=== PATIENT | female | born 1955 | race Caucasian/White ===

== ENCOUNTER 2016-05-30 19:17 | Emergency (ER) | payer MEDICARE, OTHER ==
[~2016-05-30 19:17] MED LIST: traMADol 50 MG Tab PO ONE
[2016-05-30 19:26] VITALS: BP 151/73
--- NOTE | 2016-05-30 19:43 | EDM.PDOC ---
ED HPI Trauma - General Chief Complaint: Lower Extremity Injury/Pain Stated Complaint: right foot pain Time Seen by Provider: 05/30/16 19:33 Source: Reports: Patient History Limitations: Reports: No limitations - History of Present Illness INITIAL COMMENTS - FREE TEXT/NARRATIVE: Was walking dog and it tripped her and she is having pain across the arch of her foot. She feels that it rotated internally. No numbness or tingling noted. No swelling. States that initially it didn't hurt but has become much worse. Did not take anything for the pain. Symptom Onset Date: 05/30/16 Symptom Onset Time: 17:00 Occurred Where: home Method of Injury: fall Pain/Injury Location: Reports: lower extremity, right Consciousness: Reports: no loss of consciousness Associated Symptoms: Reports: no other symptoms Allergies/ADRs: Allergies atorvastatin calcium [From Lipitor] Allergy (Verified 05/30/16 19:26) Fatigue Home Medications: Ambulatory Orders Aspirin [Halfprin] 81 mg PO DAILY 05/11/14 [Confirmed 05/30/16] Lisinopril [Lisinopril] 2.5 mg PO BID 05/11/14 [Confirmed 05/30/16] Metoprolol Tartrate [Lopressor] 25 mg PO DAILY 05/11/14 [Confirmed 05/30/16] Rosuvastatin Calcium [Crestor] 20 mg PO DAILY 05/11/14 [Confirmed 05/30/16] Isosorbide Mononitrate [Isosorbide Mononitrate ER] 30 mg PO DAILY 05/30/16 [ Confirmed 05/30/16] Past Medical History HEENT History: Reports: Impaired vision Other HEENT History: WEARS GLASSES Cardiovascular History: Reports: High cholesterol, Hypertension 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: Endocrine/Metabolic History: Reports: Diabetes, type I Hematologic History: Reports: Blood transfusion(s) - Past Surgical History Cardiovascular Surgical History: Reports: Coronary artery stent, Other (see below) Other Cardiovascular Surgeries/Procedures: 5 STENTS GI Surgical History: Reports: Cholecystectomy Social & Family History - Family History Family Medical History: Noncontributory - Tobacco Use Smoking Status *Q: Never Smoker Second Hand Smoke Exposure: No - Alcohol Use Days Per Week of Alcohol Use: 0 - Recreational Drug Use Recreational Drug Use: No - Living Situation & Occupation Living situation: Reports: , with spouse Occupation: employed Review of Systems - Review of Systems Review Of Systems: See Below Musculoskeletal: Reports: foot pain (right) Trauma Exam - Physical Exam Exam: See Below Exam Limited By: No limitations General Appearance: Reports: alert, moderate distress Head: Reports: atraumatic, normocephalic Extremities: Reports: tenderness (across the arch of her foot. no swelling noted. No deformity noted. Very tender with palpation.) Neurologic: Reports: oriented x 3 Skin: Reports: Normal color, Warm/dry Course - Vital Signs Last Recorded V/S: Last Vital Signs Temp 98.8 F 05/30/16 19:20 Pulse 76 05/30/16 19:20 Resp 20 05/30/16 19:20 BP 151/73 H 05/30/16 19:20 Pulse Ox 98 05/30/16 19:20 - Orders/Labs/Meds Orders: Active Orders 24 hr Category Date Time Status Foot Comp Min 3V Rt [CR] Stat Exams 05/30/16 19:30 Ordered - Re-Assessments/Exams Free Text/Narrative Re-Assessment/Exam: 05/30/16 19:43 No fracture or dislocation noted on xray Departure - Departure Time of Disposition: 19:44 Disposition: Home, Self-Care 01 Condition: good Clinical Impression: Sprain of foot, right Qualifiers: Encounter type: initial encounter Qualified Code(s): S93.601A - Unspecified sprain of right foot, initial encounter Instructions: Foot Sprain Forms: ED Department Discharge Additional Instructions: Tramadol 50 mg every 4 hours as needed for discomfort Rest and elevate with ice for swelling. Recheck if any further concerns. - Problem List & Annotations (1) Sprain of foot, right SNOMED Code(s): 20109959 Code(s): S93.601A - UNSPECIFIED SPRAIN OF RIGHT FOOT, INITIAL ENCOUNTER Status: Acute Priority: High Current Visit: Yes Qualifiers: Encounter type: initial encounter Qualified Code(s): S93.601A - Unspecified sprain of right foot, initial encounter - Problem List Review Problem List Initiated/Reviewed/Updated: Yes - My Orders Last 24 Hours: My Active Orders 05/30/16 19:30 Foot Comp Min 3V Rt [CR] Stat - Assessment/Plan Last 24 Hours: My Active Orders 05/30/16 19:30 Foot Comp Min 3V Rt [CR] Stat
[2016-05-30] MEDS ORDERED: Take Home: traMADol 50 MG, 4 Tab Pack PO PRN (19:45)
== END 2016-05-30 19:55 | disposition home or self-care (01) ==
LOC: CC.ED 19:17
DX: S93.601A Unspecified sprain of right foot, initial encounter (principal); E78.00 Pure hypercholesterolemia, unspecified; I10 Essential (primary) hypertension; E10.9 Type 1 diabetes mellitus without complications; Z90.49 Acquired absence of other specified parts of digestive tract; Z88.8 Allergy status to other drugs, medicaments and biological substances; W01.0XXA Fall on same level from slipping, tripping and stumbling without subsequent striking against object, initial encounter; Y92.009 Unspecified place in unspecified non-institutional (private) residence as the place of occurrence of the external cause
CPT/HCPCS: 73630; 99283; A9270

== ENCOUNTER 2019-04-28 16:55 | Emergency (ER) | payer MEDICARE, OTHER ==
[2019-04-28 17:04] VITALS: BP 140/58; PULSE 76
--- NOTE | 2019-04-28 17:29 | EDM.PDOC ---
ED HPI GENERAL MEDICAL PROBLEM - General Chief Complaint: Lower Extremity Injury/Pain Stated Complaint: HURT FOOT Time Seen by Provider: 04/28/19 17:18 Source of Information: Reports: Patient History Limitations: Reports: No Limitations - History of Present Illness INITIAL COMMENTS - FREE TEXT/NARRATIVE: Patient presents to ER with complaints of right ankle pain. Tripped while carrying boxes in her garage and her ankle rolled under her. She is now noting increased pain to right lateral ankle and foot. Is having increased pain with weight bearing. NO other injuries elsewhere. Denies hitting her head or losing consciousness. Onset: Today, Sudden Duration: Minutes: Location: Reports: Lower Extremity, Right Quality: Reports: Throbbing Severity: Moderate Improves with: Reports: Rest Worsens with: Reports: Movement Context: Reports: Trauma Associated Symptoms: Reports: No Other Symptoms Right Ankle Pain Score (Numeric/FACES): 9 - Related Data Allergies Allergy/AdvReac Type Severity Reaction Status Date / Time atorvastatin calcium Allergy Leg Cramps Verified 04/28/19 17:09 [From Lipitor] Home Meds: Home Meds Aspirin [Halfprin] 81 mg PO DAILY 05/11/14 [History] Lisinopril 2.5 mg PO BID 05/11/14 [History] Metoprolol Tartrate [Lopressor] 25 mg PO DAILY 05/11/14 [History] Rosuvastatin Calcium [Crestor] 20 mg PO DAILY 05/11/14 [History] Isosorbide Mononitrate [Isosorbide Mononitrate ER] 30 mg PO DAILY 05/30/16 [ History] Omeprazole 20 mg PO DAILY 04/28/19 [History] Past Medical History HEENT History: Reports: Impaired Vision Other HEENT History: WEARS GLASSES Cardiovascular History: Reports: High Cholesterol, Hypertension 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: Endocrine/Metabolic History: Reports: Diabetes, Type I Hematologic History: Reports: Blood Transfusion(s) - Past Surgical History Cardiovascular Surgical History: Reports: Coronary Artery Stent, Other (See Below) GI Surgical History: Reports: Cholecystectomy Social & Family History - Family History Family Medical History: Noncontributory - Tobacco Use Smoking Status *Q: Never Smoker - Caffeine Use Caffeine Use: Reports: Soda - Recreational Drug Use Recreational Drug Use: No - Living Situation & Occupation Living situation: Reports: , with Spouse Occupation: Employed Review of Systems - Review of Systems Review Of Systems: See Below Musculoskeletal: Reports: Joint Pain, Joint Swelling Skin: Reports: No Symptoms Neurological: Reports: No Symptoms ED EXAM, GENERAL - Physical Exam Exam: See Below Exam Limited By: No Limitations General Appearance: Alert, WD/WN, Mild Distress Extremities: Normal Capillary Refill, Joint Swelling (patient has notable right lateral malleolar swelling. Tender. Pain with flexion, extension and inversion. ), Limited Range of Motion. No: Redness Neurological: Alert, Oriented Skin Exam: Warm, Dry Course - Vital Signs Last Recorded V/S: Last Vital Signs Temp 98.1 F 04/28/19 17:02 Pulse 76 04/28/19 17:02 Resp 16 04/28/19 17:02 BP 140/58 L 04/28/19 17:02 Pulse Ox 98 04/28/19 17:02 - Orders/Labs/Meds Orders: Active Orders 24 hr Category Date Time Status Ankle Min 3V Rt [CR] Stat Exams 04/28/19 17:04 Taken Foot Comp Min 3V Rt [CR] Stat Exams 04/28/19 17:04 Taken - Re-Assessments/Exams Free Text/Narrative Re-Assessment/Exam: 04/28/19 Xrays negative. Air splint applied. Departure - Departure Time of Disposition: 17:25 Disposition: Home, Self-Care 01 Condition: Good Clinical Impression: Right ankle sprain - Discharge Information *PRESCRIPTION DRUG MONITORING PROGRAM REVIEWED*: No *COPY OF PRESCRIPTION DRUG MONITORING REPORT IN PATIENT MARQUISE: No Forms: ED Department Discharge Additional Instructions: 1. Rest 2. Ice frequently tonight 3. Elevate on pillows tonight 4. Air splint for support for the next few days 5. Weight bear as tolerated 6. Ibuprofen 400-600 mg every 6 hours as needed for pain and swelling 7. Follow up in 5-7 days if persisting pain. Sepsis Event Note - Evaluation Sepsis Screening Result: No Definite Risk - Focused Exam Vital Signs: Vital Signs Temp Pulse Resp BP Pulse Ox 04/28/19 17:02 98.1 F 76 16 140/58 L 98 Date Exam was Performed: 04/28/19 Time Exam was Performed: 20:20 - My Orders Last 24 Hours: My Active Orders 04/28/19 17:04 Ankle Min 3V Rt [CR] Stat Foot Comp Min 3V Rt [CR] Stat - Assessment/Plan Last 24 Hours: My Active Orders 04/28/19 17:04 Ankle Min 3V Rt [CR] Stat Foot Comp Min 3V Rt [CR] Stat
== END 2019-04-28 17:30 | disposition home or self-care (01) ==
LOC: CC.ED 16:55 → SUPCPDRO 16:55 → CC.ED 17:30
DX: S93.401A Sprain of unspecified ligament of right ankle, initial encounter (principal); E10.9 Type 1 diabetes mellitus without complications; E78.00 Pure hypercholesterolemia, unspecified; I10 Essential (primary) hypertension; Z79.82 Long term (current) use of aspirin; Z88.8 Allergy status to other drugs, medicaments and biological substances; Z79.899 Other long term (current) drug therapy; X50.1XXA Overexertion from prolonged static or awkward postures, initial encounter
CPT/HCPCS: 73610-RT; 73630-RT; 99283; 99283-25

== ENCOUNTER 2021-02-12 15:08 | Emergency (ER) | payer MEDICARE, OTHER ==
[2021-02-12 15:24] VITALS: BP 135/63; PULSE 85
--- NOTE | 2021-02-12 15:43 | EDM.PDOC ---
ED HPI GENERAL MEDICAL PROBLEM - General Chief Complaint: General Stated Complaint: "dry socket in shoulder" Time Seen by Provider: 02/12/21 15:15 Source of Information: Reports: Patient History Limitations: Reports: No Limitations - History of Present Illness INITIAL COMMENTS - FREE TEXT/NARRATIVE: States that she started to have pain in the left shoulder area yesterday and it became worse today. She wasn't able to lift her shoulder as it hurt. She states that it is superficially very tender and put any icy hot patch on it without any improvement. She Denies any lifting, falls or injury to the out stretched arm. Denies that it hurts in the joint but more superficially as even minimal pressure causes her to have pain. She has no bruising noted to the area. Onset: Gradual Duration: Getting Worse Location: Reports: Upper Extremity, Left Quality: Reports: Throbbing Associated Symptoms: Denies: Fever/Chills Treatments PSYCHOLOGY ASSOCIATE: Reports: Acetaminophen, NSAIDS, Other (see below) (icy hot patch) Left Shoulder Pain Score (Numeric/FACES): 9 - Related Data Allergies Allergy/AdvReac Type Severity Reaction Status Date / Time atorvastatin calcium Allergy Leg Cramps Verified 02/12/21 15:21 [From Lipitor] Home Meds: Home Meds Aspirin [Halfprin] 81 mg PO DAILY 05/11/14 [History] Lisinopril 2.5 mg PO BID 05/11/14 [History] Metoprolol Tartrate [Lopressor] 25 mg PO BID 05/11/14 [History] Rosuvastatin Calcium [Crestor] 20 mg PO DAILY 05/11/14 [History] Isosorbide Mononitrate [Isosorbide Mononitrate ER] 60 mg PO DAILY 05/30/16 [History] Omeprazole 20 mg PO DAILY 04/28/19 [History] Past Medical History HEENT History: Reports: Impaired Vision Other HEENT History: WEARS GLASSES Cardiovascular History: Reports: High Cholesterol, Hypertension 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: Endocrine/Metabolic History: Reports: Diabetes, Type I Hematologic History: Reports: Blood Transfusion(s) - Past Surgical History Cardiovascular Surgical History: Reports: Coronary Artery Stent, Other (See Below) GI Surgical History: Reports: Cholecystectomy Social & Family History - Family History Family Medical History: No Pertinent Family History - Tobacco Use Tobacco Use Status *Q: Never Tobacco User Second Hand Smoke Exposure: No - Caffeine Use Caffeine Use: Reports: None - Recreational Drug Use Recreational Drug Use: No - Living Situation & Occupation Living situation: Reports: , with Spouse Occupation: Employed ED ROS GENERAL - Review of Systems Review Of Systems: See Below Constitutional: Denies: Fever, Chills Musculoskeletal: Reports: Shoulder Pain, Arm Pain ED EXAM, GENERAL - Physical Exam Exam: See Below Exam Limited By: No Limitations General Appearance: Alert, WD/WN, Mild Distress Respiratory/Chest: No Respiratory Distress, Lungs Clear Cardiovascular: Regular Rate, Rhythm Extremities: Normal Inspection, Limited Range of Motion (Has increase in pain to the left shoulder with movement. She has increase in pain superficially. No swelling to the area.) Neurological: Alert, Oriented Skin Exam: Warm, Dry Course - Vital Signs Last Recorded V/S: Last Vital Signs Temp 96.0 F L 02/12/21 15:10 Pulse 85 02/12/21 15:10 Resp 20 02/12/21 15:10 BP 135/63 02/12/21 15:10 Pulse Ox 95 02/12/21 15:10 - Orders/Labs/Meds Orders: Active Orders 24 hr Category Date Time Status Shoulder 1V Lt [CR] Stat Exams 02/12/21 15:26 Ordered Departure - Departure Time of Disposition: 16:02 Disposition: Home, Self-Care 01 Condition: Good Clinical Impression: Tendonitis of shoulder, left - Discharge Information *PRESCRIPTION DRUG MONITORING PROGRAM REVIEWED*: Not Applicable *COPY OF PRESCRIPTION DRUG MONITORING REPORT IN PATIENT MARQUISE: Not Applicable Instructions: Tendinitis, [id number] Additional Instructions: Toradol 10 mg every 8 hours. Only take with food. If not improving may benefit from physical therapy. call to make appt at [phone] May use tylenol in between doses of toradol to help with discomfort if needed. Heat or cold can be used depending on which gives the most relief. Use the arm as tolerated. Do not totally immobilize it. Sepsis Event Note (ED) - Evaluation Sepsis Screening Result: No Definite Risk - Focused Exam Vital Signs: Vital Signs Temp Pulse Resp BP Pulse Ox 02/12/21 15:10 96.0 F L 85 20 135/63 95 - Problem List & Annotations (1) Tendonitis of shoulder, left SNOMED Code(s): 169023616 Code(s): M77.8 - OTHER ENTHESOPATHIES, NOT ELSEWHERE CLASSIFIED Status: Acute Priority: High - Problem List Review Problem List Initiated/Reviewed/Updated: Yes - My Orders Last 24 Hours: My Active Orders 02/12/21 15:26 Shoulder 1V Lt [CR] Stat - Assessment/Plan Last 24 Hours: My Active Orders 02/12/21 15:26 Shoulder 1V Lt [CR] Stat
[2021-02-12] MEDS ORDERED: Take Home: Ketorolac 10 MG Tab, 4 Tab Pack PO ONE (15:54)
[2021-02-12] MEDS ORDERED: Ketorolac 60 MG/2 ML SDV IM ONE (16:01)
== END 2021-02-12 16:15 | disposition home or self-care (01) ==
LOC: CC.ED 15:08
DX: M77.8 Other enthesopathies, not elsewhere classified (principal); E78.00 Pure hypercholesterolemia, unspecified; I10 Essential (primary) hypertension; E10.9 Type 1 diabetes mellitus without complications; Z88.8 Allergy status to other drugs, medicaments and biological substances; Z79.82 Long term (current) use of aspirin; Z79.899 Other long term (current) drug therapy
CPT/HCPCS: 73030-LT; 96372; 99283-25; A9270-GY; J1885

== ENCOUNTER 2021-12-02 12:52 | Emergency (ER) | payer MEDICARE, OTHER ==
[2021-12-02 12:57] VITALS: BP 136/57; PULSE 102
[2021-12-02] MEDS ORDERED: Ketorolac 30 MG/ML SDV IVPUSH ONE ×2 (13:17→13:21)
[2021-12-02] MEDS ORDERED: Ondansetron 4 MG/2 ML SDV IVPUSH PRN (13:17)
[2021-12-02] MEDS ORDERED: Albuterol 8 GM Inhaler INH PRN (13:17)
[2021-12-02] MEDS ORDERED: Lactated Ringers 1,000 ML IV SCH (13:30)
== END 2021-12-02 15:10 | disposition home or self-care (01) ==
LOC: CC.ED 12:52
DX: U07.1 COVID-19 (principal); I10 Essential (primary) hypertension; E78.00 Pure hypercholesterolemia, unspecified; E10.9 Type 1 diabetes mellitus without complications; Z79.899 Other long term (current) drug therapy
CPT/HCPCS: 96361; 96374; 96375; 99283; 99284; A9270; J1885; J2405; J7120

== ENCOUNTER 2023-09-05 13:54 | Emergency (ER) | payer MEDICARE, OTHER ==
[2023-09-05 13:57] VITALS: BP 120/67; PULSE 91
[2023-09-05] MEDS: Ondansetron 4 MG/2 ML SDV IVPUSH PRN (14:15)
[2023-09-05] MEDS: Sodium Chloride 0.9% 1,000 ML IV ONE (14:15)
[2023-09-05 14:18] LABS: BASOPHILS ABSOLUTE AUTO 0.03 10^3/uL (0.00-0.50); BASOPHILS PERCENT AUTO 0.3 % (0-1); HEMATOCRIT 34.4 % (37.0-47.0); HEMOGLOBIN 11.5 g/dL (12.0-16.0); IMMATURE GRAN ABSOLUTE AUTO 0.02 10^3/uL (0.00-0.49); IMMATURE GRAN PERCENT AUTO 0.2 % (0.0-4.9); LYMPHOCYTES PERCENT AUTO 23.4 % (24-44); MEAN CORPUSCULAR HEMOGLOBIN 30.3 pg (27.0-32.0); MEAN CORPUSCULAR HGB CONC 33.4 g/dL (32.0-36.0); MEAN CORPUSCULAR VOLUME 90.5 fL (83.0-97.0); MONOCYTES ABSOLUTE AUTO 0.99 10^3/uL (0.00-1.50); MONOCYTES PERCENT AUTO 9.6 % (0-10); NEUTROPHILS ABSOLUTE AUTO 6.72 x10^3/uL (1.80-8.00); NEUTROPHILS PERCENT AUTO 65.5 % (41-71); PLATELET COUNT,PLT 233 10^3/uL (150-400); WHITE BLOOD CELL COUNT,WBC 10.3 10^3/uL (4.0-11.0)
[2023-09-05] MEDS: Ketorolac 30 MG/ML SDV IVPUSH ONE (14:31)
[2023-09-05 15:38] LABS: ALANINE AMINOTRANSFERASE,ALT 16 U/L (12-78); ALBUMIN 3.8 g/dL (3.4-5.0); ALKALINE PHOSPHATASE 74 U/L (46-116); ASPARTATE AMNIOTRANSFERASE,AST 16 U/L (15-37); BILIRUBIN TOTAL 0.6 mg/dL (0.0-1.0); BLOOD UREA NITROGEN,BUN 15 mg/dL (7-18); CALCIUM 9.2 mg/dL (8.4-10.1); CARBON DIOXIDE,CO2 24 mmol/L (21-32); CHLORIDE,CL 99 mEq/L (98-106); CREATININE 1.3 mg/dL (0.6-1.0); EST CRCL DRUG DOSING (CG) 34.26 mL/min; GLUCOSE RANDOM 121 mg/dL (75-99); POTASSIUM,K 4.3 mEq/L (3.5-5.0); PROTEIN TOTAL,TP 7.7 g/dL (6.4-8.2); SODIUM,NA 136 mEq/L (136-145)
[2023-09-05 15:39] LABS: C-REACTIVE PROTEIN < 0.50 mg/dL (<=0.50); ESTIMATED GFR 45 mL/min (>=60)
== END 2023-09-05 16:00 | disposition home or self-care (01) ==
LOC: CC.ED 13:54
DX: R11.2 Nausea with vomiting, unspecified (principal); T40.2X5A Adverse effect of other opioids, initial encounter; I10 Essential (primary) hypertension; E78.00 Pure hypercholesterolemia, unspecified; E10.9 Type 1 diabetes mellitus without complications; Z95.5 Presence of coronary angioplasty implant and graft; Z90.49 Acquired absence of other specified parts of digestive tract; Z79.82 Long term (current) use of aspirin; Z79.84 Long term (current) use of oral hypoglycemic drugs; Z79.899 Other long term (current) drug therapy; Z88.8 Allergy status to other drugs, medicaments and biological substances
CPT/HCPCS: 36415; 80053; 84484; 85025; 86140; 93005; 96361; 96374; 96375; 99284-25; J1885; J2405; J7030